=== PATIENT | male | born 1970 | race Caucasian/White ===

== ENCOUNTER 2016-12-04 13:10 | Emergency (ER) | payer OTHER ==
[~2016-12-04] VITALS: Ht 182.9 cm; Wt 120.5 kg
[2016-12-04 13:14] VITALS: BP 131/76; PULSE 88; TEMP 98.8
[2016-12-04] MEDS ORDERED: CELEXA40 MG PO (13:30)
[2016-12-04] MEDS ORDERED: BACTRIM DS 8001 TAB PO (13:50)
[2016-12-04] MEDS ORDERED: NORCO 325 MG-51 TAB PO (13:50)
== END 2016-12-04 13:58 | disposition home or self-care (01) ==
LOC: COL.ER 13:10
DX: L02.213 Cutaneous abscess of chest wall (principal); F32.9 Major depressive disorder, single episode, unspecified